=== PATIENT | female | born 1965 | race Caucasian/White ===

== ENCOUNTER 2020-11-20 06:12 | Emergency (ER) | payer BC ==
[~2020-11-20] VITALS: Ht 170.2 cm; Wt 54.4 kg
[~2020-11-20 06:12] MED LIST: PRESTIQ PO
[2020-11-20 06:18] VITALS: BP_SYST 141
--- NOTE | 2020-11-20 06:20 | NUR ---
PT PLACED IN ER BED 07 REPORT GIVEN TO MOVING VAN DRIVER MALLORY LOAIZA ER MD GENET POPE
--- NOTE | 2020-11-20 06:25 | NUR ---
Pt c/o right eye pain, 8/10. Pt states that dog stepped on her right eye and dog's nail went under her eyelid. Eye appears slightly swollen with some redness. VS WNL. Visual acuity test performed.
--- NOTE | 2020-11-20 06:27 | NUR ---
ER MD MATHUR AT BEDSIDE EXAMINING PT
[2020-11-20] MEDS ORDERED: POLYMYXIN B/TRIMETHOPRIM EYE DROPS 10 mL OP ONE (06:45)
--- NOTE | 2020-11-20 06:45 | NUR ---
Dr. Ponce at bedside for eye exam. Right eye irrigated with [address] Ponce. Patient tolerated well.
[2020-11-20] MEDS ORDERED: ERYTHROMYCIN BASE 0.5% EYE OINT...G. ONE (06:53)
[2020-11-20] MEDS ORDERED: ERYTHROMYCIN 0.5% EYE OINT 3.5 GM OP ONE (07:00)
[2020-11-20] MEDS ORDERED: TOBR3.5O2 RIGHT EYE (07:04)
[2020-11-20 07:23] VITALS: BP_SYST 135
--- NOTE | 2020-11-20 07:23 | NUR ---
Patient given written and verbal discharge instructions and verbalizes understanding. ER MD discussed with patient the results and treatment provided. Patient in stable condition. ID arm band removed. Rx given. Patient educated on pain management and to follow up with PMD. Pain Scale 5/10. Opportunity for questions provided and answered. Medication side effect fact sheet provided.
== END 2020-11-20 07:23 | disposition home or self-care (01) ==
LOC: SED 06:12
DX: S05.01XA Injury of conjunctiva and corneal abrasion without foreign body, right eye, initial encounter (principal); F41.9 Anxiety disorder, unspecified; Z88.1 Allergy status to other antibiotic agents; W54.1XXA Struck by dog, initial encounter; Y93.89 Activity, other specified; Y92.098 Other place in other non-institutional residence as the place of occurrence of the external cause; Y99.8 Other external cause status
CPT/HCPCS: 99283